=== PATIENT | male | born 1960 | race Two or more races ===

== ENCOUNTER 2021-04-04 11:21 | Emergency (ER) | payer MEDICAID ==
[~2021-04-04] VITALS: Ht 162.6 cm; Wt 70.0 kg
[2021-04-04 13:56] VITALS: BP 158/91
[2021-04-06 14:06] LABS: QUANTIFERON, TB GOLD PLUS Positive (Negative)
== END 2021-04-04 13:52 | disposition home or self-care (01) ==
LOC: EMS 11:24
DX: Z11.3 Encounter for screening for infections with a predominantly sexual mode of transmission (principal)
CPT/HCPCS: 86480; 86592; 87491; 87591; 99283

== ENCOUNTER → 2021-04-16 | Outpatient (CLI) | payer MEDICAID | END | disposition home or self-care (01) | LOC: RADPV 12:57 | PROVIDERS: ATTEND Internal Medicine | DX: J84.9 Interstitial pulmonary disease, unspecified (principal); J84.10 Pulmonary fibrosis, unspecified; R76.11 Nonspecific reaction to tuberculin skin test without active tuberculosis | CPT/HCPCS: 71046 ==

== ENCOUNTER → 2024-12-30 | Emergency (ER) | payer OTHER ==
[~2024-12-30] VITALS: Ht 162.6 cm; Wt 65.0 kg
[~2024-12-30] MED LIST: ACET-3385 PO; AMLO-258 PO; AMOX-457 PO; ATOR40TA28 PO; URSO300C4 PO
[2024-12-30 18:47] VITALS: BP 161/68; PULSE 96; RESP 16; TEMP 98.3; O2SAT 98
[2024-12-30] MEDS: AMOX TR/POT CLAV 875 MG/125 MG TABLET PO ONE (21:00)
[2024-12-30] MEDS: PERTUSS(ACELL),DIPH,TET/PF 0.5 ML SYRINGE [ADULT] IM. ONE (21:00)
== END | disposition still patient (30) ==
LOC: EMS 18:45
DX: S61.052A Open bite of left thumb without damage to nail, initial encounter (principal); I10 Essential (primary) hypertension; Z79.899 Other long term (current) drug therapy; W53.11XA Bitten by rat, initial encounter; Y93.89 Activity, other specified; Y92.89 Other specified places as the place of occurrence of the external cause; Y99.8 Other external cause status
CPT/HCPCS: 90471; 90715; 99283

== ENCOUNTER 2025-01-01 11:09 | Day surgery (SDC) | payer OTHER ==
[~2025-01-01] VITALS: Ht 162.6 cm; Wt 67.3 kg
[~2025-01-01 11:09] MED LIST changes: -ACET-3385 PO; +SODIUM CHLORIDE 0.9% 1,000 ML ONE; -URSO300C4 PO
[2025-01-01 11:49] LABS: PLATELET COUNT (AUTO) 289 K/uL (150-450); RED BLOOD CELL COUNT(AUTO) 5.17 MIL/uL (4.50-5.90); RED CELL DISTRIBUTION WIDTH 16.1 % (11.5-14.5); WHITE BLOOD COUNT (AUTO) 8.9 K/uL (4.5-11.0)
[2025-01-01] MEDS: SODIUM CHLORIDE 0.9% 1,000 ML IV ONE (11:49)
[2025-01-01 11:55] LABS: CALCIUM, TOTAL 9.4 mg/dL (8.8-10.5); CREATININE 1.02 mg/dL (0.60-1.30); GLOMERULAR FILTR. RATE CALC > 60 mL/min (>60); GLUCOSE,RANDOM 106 mg/dL (70-110); SODIUM SERUM 139 mmol/L (136-145); UREA NITROGEN, BLOOD 15 mg/dL (7-18)
[2025-01-01 12:00] LABS: ASPARTATE AMINOTRANSFERASE 25 U/L (15-37); TOTAL PROTEIN, SERUM 8.3 g/dL (6.4-8.2)
[2025-01-01] MEDS ORDERED: ROCURONIUM BROMIDE 10 MG/ML 5 ML VIAL ONE (12:00)
[2025-01-01] MEDS ORDERED: LIDOCAINE/PF 2% 5 ML VIAL ONE (12:00)
[2025-01-01] MEDS ORDERED: FentaNYL CITRATE PF 100 MCG/2 ML VIAL ONE (12:00)
[2025-01-01] MEDS ORDERED: DEXAMETHASONE SOD PHOS 4 MG/ML VIAL ONE (12:00)
[2025-01-01] MEDS ORDERED: MIDAZOLAM HCL 2 MG/2 ML VIAL ONE (12:00)
[2025-01-01] MEDS ORDERED: SUGAMMADEX SODIUM 200 MG/2 ML VIAL IVP ONE (12:00)
[2025-01-01] MEDS ORDERED: PROPOFOL 1% 20 ML VIAL IVP ONE (12:00)
[2025-01-01] MEDS ORDERED: 0.9% SODIUM CHLORIDE 10 ML VIAL ONE (12:00)
[2025-01-01] MEDS ORDERED: ONDANSETRON HCL 4 MG/2 ML VIAL ONE (12:00)
[2025-01-01] MEDS ORDERED: FLUMAZENIL 0.1 MG/ML 5 ML VIAL IVP ONE (12:13)
[2025-01-01] MEDS ORDERED: IOTHALAMATE MEGLUMINE 600 MG/ML 50 ML VIAL IVP ONE (12:13)
[2025-01-01] MEDS ORDERED: ATROPINE SULFATE 0.1 MG/ML 10 ML SYRINGE IVP ONE (12:14)
[2025-01-01] MEDS ORDERED: SODIUM TETRADECYL SULFATE 3% 60 MG/2 ML VIAL IVP ONE (12:14)
[2025-01-01] MEDS ORDERED: EPINEPHrine 1:10,000 [1 MG/10 ML] SYRINGE ONE (12:14)
[2025-01-01] MEDS ORDERED: NALOXONE HCL 0.4 MG/ML VIAL ONE (12:14)
== END 2025-01-01 15:20 | disposition home or self-care (01) ==
LOC: SDS 11:09
PROVIDERS: ATTEND Internal Medicine Gastroenterology
DX: K83.1 Obstruction of bile duct (principal); I10 Essential (primary) hypertension; Z90.49 Acquired absence of other specified parts of digestive tract
CPT/HCPCS: 43264; 43275; 80053; 85025; 85610; 85730; 36415; 88300; C1769; J2704; J0690; J1100; J3010; Q9961; J3490 ×3; J2250; J2405; J7030; J0169; J0461; J1200; J2312